=== PATIENT | male | born 1975 | race Caucasian/White ===

== ENCOUNTER 2023-08-25 17:02 | Emergency (ER) | payer MEDICAID ==
[~2023-08-25] VITALS: Ht 175.3 cm; Wt 114.4 kg
[2023-08-25 18:25] VITALS: BP 181/72; PULSE 71; RESP 16; TEMP 96.4; O2SAT 98
[2023-08-25] MEDS ORDERED: ACE3T PO (19:10)
[2023-08-25] MEDS ORDERED: CYCL-614 PO (19:10)
== END 2023-08-25 21:10 | disposition home or self-care (01) ==
LOC: ER 17:02
DX: S29.012A Strain of muscle and tendon of back wall of thorax, initial encounter (principal); I10 Essential (primary) hypertension; E11.9 Type 2 diabetes mellitus without complications; Z87.891 Personal history of nicotine dependence; Z79.899 Other long term (current) drug therapy; V89.2XXA Person injured in unspecified motor-vehicle accident, traffic, initial encounter; Y93.I9 Activity, other involving external motion; Y92.89 Other specified places as the place of occurrence of the external cause; Y99.8 Other external cause status
CPT/HCPCS: 72070